=== PATIENT | female | born 1965 ===

== ENCOUNTER 2018-01-05 15:28 | Inpatient (IN) ==
[2018-01-05] MEDS ORDERED: SODIUM CHLORIDE 0.9% 1,000 ML IV STA ×2 (16:06→17:14)
[2018-01-05] MEDS ORDERED: DEXTROSE 50% 25 GM/50 ML SYRINGE IV ONE (17:13)
[2018-01-05 17:25] LABS: Basophils % 0.2 % (0.0-0.8); Eosinophils # 0.1 10*3/uL (0.0-0.87); Hematocrit 30.5 VOL% (35.7-47.0); Hemoglobin 9.9 GM/DL (12.0-16.0); Immature Granulocytes % 0.9 %; Immature Granulocytes Absolute 0.11 #; Lymphocytes % 8.1 % (21.3-54.2); Mean Corpuscular HGB Conc 32.5 GM/DL (32-36); Mean Corpuscular Hemoglobin 32 PG (27-34); Mean Corpuscular Volume 99.7 FL (87-102); Monocytes # 0.5 10*3/uL (0.11-0.8); Monocytes % 4.2 % (1.7-12.7); Neutrophils # 10.8 10*3/uL (1.4-7.4); Neutrophils % 85.6 % (38.7-73.9); Platelet Count 198 T/CUMM (130-400); Red Blood Count 3.06 MC/CUMM (3.8-5.5); Red Cell Distribution Width 13.6 % (9.3-17.3); White Blood Count 12.7 T/CUMM (4-12)
[2018-01-05 17:39] LABS: Ammonia 22 UMOL/L (11-32)
[2018-01-05 17:45] LABS: Apearance,Urine Slightly Hazy (Clear); Bilirubin,Urine Negative (Negative); Blood, Urine Negative (Negative); Glucose,Urine (UA) 50 mg/dL (Negative); Hyaline Casts,Urine 3 /LPF (0-3); Ketones,Urine Negative (Negative); Mucus,Urine Occasional /LPF (Occasional); Nitrite,Urine Negative (Negative); Protein,Urine Negative; RBC,Urine 3 /HPF (0-4); Renal Epithelial Cells,Urine Occasional /HPF (<1); Squamous Epithelial Cell,Urine Occasional /HPF (0-10); Urine Color Yellow (Yellow); Urine Specific Gravity 1.015 (1.001-1.035); Urine Urobilinogen < 2.0 EU/DL (0.2-1.0); WBC,Urine 2 /HPF (0-6)
[2018-01-05 17:45] LABS: Alanine Aminotransferase 16 U/L (13-56); Albumin 2.1 G/DL (3.4-5.0); Alkaline Phosphatase 123 U/L (45-117); Aspartate Amino Transferase 23 U/L (0-37); Blood Urea Nitrogen 38 MG/DL (7-18); Glucose 89 MG/DL (74-106); Osmolality,Calculated 288.3 MOS/KG (273-304); Potassium 3.7 MMOL/L (3.5-5.1); Sodium 141 MMOL/L (136-145); Total Protein 6.8 G/DL (6.4-8.3); Troponin I Only < 0.015 NG/ML (0.00-0.045)
[2018-01-05 17:47] LABS: Barbiturates Screen,Urine Negative (Negative); Benzodiazepines Screen,Urine Negative (Negative); Cannabinoid Screen,Urine Negative (Negative); Opiate Screen,Urine Positive (Negative); Phencyclidine Screen,Urine Negative (Negative)
[2018-01-05 17:51] LABS: INR 1.1; PT Patient Result 11.2 SECS; Partial Thromboplastin Time 29.9 SECS (0-40)
[2018-01-05 19:03] LABS: Anisocytosis 1+; Macrocytosis 1+; Platelet Estimate Normal
[2018-01-05] MEDS ORDERED: GLUCAGON 1 MG VIAL IM PRN (19:10)
[2018-01-05] MEDS ORDERED: DEXTROSE 50% 25 GM/50 ML VIAL IV PRN (19:10)
[2018-01-05 20:40] LABS: ABG Base Excess -1.6 MMOL/L (-2.5-2.5); ABG HCO3 23.1 MMOL/L (20-26); ABG Oxygen Saturation 99.1 % (95-100); ABG PH 7.369 (7.35-7.45)
[2018-01-05 21:56] LABS: Magnesium 2.4 MG/DL (1.8-2.4)
[2018-01-05] MEDS: DEXTROSE 5% NACL 0.9% 1,000 ML IV SCH (23:43)
[2018-01-06] MEDS: INSULIN LISPRO 100 UNIT/ML SUBCUT SCH ×4 (01:29→18:05)
[2018-01-06 05:50] LABS: Basophils % 0.3 % (0.0-0.8); Eosinophils # 0.1 10*3/uL (0.0-0.87); Eosinophils % 1.1 % (0.00-10.9); Hemoglobin 9.7 GM/DL (12.0-16.0); Immature Granulocytes % 0.5 %; Immature Granulocytes Absolute 0.05 #; Lymphocytes % 9.1 % (21.3-54.2); Mean Corpuscular HGB Conc 33.4 GM/DL (32-36); Mean Corpuscular Hemoglobin 33 PG (27-34); Mean Platelet Volume 10.2 FL (9.6-12.0); Monocytes # 0.4 10*3/uL (0.11-0.8); Monocytes % 3.6 % (1.7-12.7); Neutrophils % 85.4 % (38.7-73.9); Platelet Count 202 T/CUMM (130-400); Red Blood Count 2.96 MC/CUMM (3.8-5.5); Red Cell Distribution Width 13.6 % (9.3-17.3); White Blood Count 10.6 T/CUMM (4-12)
[2018-01-06 06:19] LABS: Eosinophils 1 % (0-10); Giant Platelets Few; Hypochromasia 1+; Lymphocytes 8 % (20-55); Microcytosis Slight; Ovalocytes Slight; Platelet Estimate Adequate; Segmented Neutrophils 86 % (50-85); Total Cells Counted 100
[2018-01-06 06:22] LABS: Albumin 1.8 G/DL (3.4-5.0); Bilirubin,Total 0.7 MG/DL (0.2-1.0); Osmolality,Calculated 298.6 MOS/KG (273-304); Potassium 3.4 MMOL/L (3.5-5.1); Total Protein 5.6 G/DL (6.4-8.3)
[2018-01-06] MEDS: DEXTROSE 5% NACL 0.9% 1,000 ML IV SCH ×3 (07:52→17:58)
[2018-01-06] MEDS ORDERED: THIAMINE 200 MG/2 ML VIAL IV SCH (09:00)
[2018-01-06] MEDS: FOLIC ACID 1 MG TABLET PO SCH (09:54)
[2018-01-06 21:44] LABS: Apearance,Urine Slightly Hazy (Clear); Bacteria,Urine Many /HPF (Few); Bilirubin,Urine Negative (Negative); Blood, Urine Small mg/dL (Negative); Glucose,Urine (UA) Negative (Negative); Ketones,Urine Negative (Negative); Mucus,Urine Occasional /LPF (Occasional); Nitrite,Urine Negative (Negative); Protein,Urine 30 MG/DL; RBC,Urine 4 /HPF (0-4); Squamous Epithelial Cell,Urine Occasional /HPF (0-10); Urine Color Yellow (Yellow); Urine Specific Gravity 1.012 (1.001-1.035); Urine Urobilinogen < 2.0 EU/DL (0.2-1.0); WBC,Urine 36 /HPF (0-6)
[2018-01-07] MEDS: INSULIN LISPRO 100 UNIT/ML SUBCUT SCH ×2 (00:33→07:05)
[2018-01-07] MEDS: DEXTROSE 5% NACL 0.9% 1,000 ML IV SCH ×3 (00:55→17:01)
[2018-01-07] MEDS: ACETAMINOPHEN 325 MG TABLET PO PRN ×2 (03:16→23:19)
[2018-01-07 06:33] LABS: Magnesium 1.9 MG/DL (1.8-2.4); Prealbumin 4.9 MG/DL (20-40)
[2018-01-07] MEDS: THIAMINE 100 MG TABLET PO SCH (09:49)
[2018-01-07] MEDS: ASPIRIN EC 81 MG TABLET PO SCH (09:50)
[2018-01-07] MEDS: FOLIC ACID 1 MG TABLET PO SCH (09:50)
[2018-01-07] MEDS: HYDROcod/ACETAMIN 7.5-325 MG/15 ML UDCUP PO PRN ×2 (14:15→23:19)
[2018-01-08 04:59] LABS: Basophils % 0.2 % (0.0-0.8); Eosinophils # 0.2 10*3/uL (0.0-0.87); Eosinophils % 1.9 % (0.00-10.9); Hematocrit 25.9 VOL% (35.7-47.0); Hemoglobin 8.5 GM/DL (12.0-16.0); Immature Granulocytes % 0.7 %; Immature Granulocytes Absolute 0.07 #; Lymphocytes % 9.3 % (21.3-54.2); Mean Corpuscular HGB Conc 32.8 GM/DL (32-36); Mean Corpuscular Hemoglobin 33 PG (27-34); Mean Corpuscular Volume 101.2 FL (87-102); Mean Platelet Volume 10.7 FL (9.6-12.0); Monocytes # 0.4 10*3/uL (0.11-0.8); Monocytes % 3.3 % (1.7-12.7); Neutrophils % 84.6 % (38.7-73.9); Platelet Count 187 T/CUMM (130-400); Red Blood Count 2.56 MC/CUMM (3.8-5.5); Red Cell Distribution Width 13.8 % (9.3-17.3); White Blood Count 10.7 T/CUMM (4-12)
[2018-01-08 05:31] LABS: Calcium 6.7 MG/DL (8.5-10.1); Potassium 3.5 MMOL/L (3.5-5.1)
[2018-01-08] MEDS: LEVOTHYROXINE 50 MCG TABLET PEG SCH (06:03)
[2018-01-08 06:21] LABS: Hypochromasia 2+; Microcytosis 2+; Platelet Estimate Adequate
[2018-01-08] MEDS: DEXTROSE 5% NACL 0.9% 1,000 ML IV SCH (07:21)
[2018-01-08] MEDS: ASPIRIN EC 81 MG TABLET PO SCH (09:58)
[2018-01-08] MEDS: FOLIC ACID 1 MG TABLET PO SCH (09:58)
[2018-01-08] MEDS: HYDROcod/ACETAMIN 7.5-325 MG/15 ML UDCUP PO PRN ×2 (09:58→17:33)
[2018-01-08] MEDS: THIAMINE 100 MG TABLET PO SCH (09:58)
[2018-01-09] MEDS: HYDROcod/ACETAMIN 7.5-325 MG/15 ML UDCUP PO PRN ×3 (05:32→17:05)
[2018-01-09] MEDS: LEVOTHYROXINE 50 MCG TABLET PEG SCH (05:33)
[2018-01-09] MEDS: FOLIC ACID 1 MG TABLET PO SCH (09:18)
[2018-01-09] MEDS: THIAMINE 100 MG TABLET PO SCH (09:18)
[2018-01-09] MEDS: ASPIRIN EC 81 MG TABLET PO SCH (09:18)
[2018-01-10] MEDS: LEVOTHYROXINE 50 MCG TABLET PEG SCH (06:30)
[2018-01-10 07:44] LABS: Calcium 7.6 MG/DL (8.5-10.1); Osmolality,Calculated 291.7 MOS/KG (273-304); Potassium 4.7 MMOL/L (3.5-5.1); Prealbumin 8.7 MG/DL (20-40)
[2018-01-10] MEDS: THIAMINE 100 MG TABLET PO SCH (09:12)
[2018-01-10] MEDS: FOLIC ACID 1 MG TABLET PO SCH (09:13)
[2018-01-10] MEDS: ASPIRIN EC 81 MG TABLET PO SCH (09:23)
[2018-01-10 11:51] VITALS: BP 122/64
[2018-01-10] MEDS ORDERED: LEVOTHYROXINE 75 MCG TABLET PO SCH (13:00)
== END 2018-01-10 14:42 | disposition left against medical advice (07) | DRG 420 ==
LOC: EDUNIT# → EDBD → N.ED 15:28 → N.EDINP 15:28 → N.2E 20:32
PROVIDERS: ADMIT Hospitalist; ATTEND Hospitalist

== ENCOUNTER 2018-02-03 15:19 | Inpatient (IN) ==
[2018-02-03] MEDS ORDERED: NALOXONE 0.4 MG/ML VIAL IV STA (16:00)
[2018-02-03] MEDS ORDERED: SODIUM CHLORIDE 0.9% 500 ML IV STA (16:00)
[2018-02-03] MEDS ORDERED: NALOXONE 0.4 MG/ML VIAL ONE (16:32)
[2018-02-03 17:05] LABS: Apearance,Urine CLEAR (Clear); Bacteria,Urine Moderate /HPF (Few); Bilirubin,Urine Negative (Negative); Blood, Urine Negative (Negative); Glucose,Urine (UA) Negative (Negative); Hyaline Casts,Urine 3 /LPF (0-3); Ketones,Urine Negative (Negative); Mucus,Urine Occasional /LPF (Occasional); Nitrite,Urine Negative (Negative); Protein,Urine 100 MG/DL; RBC,Urine <1 /HPF (0-4); Urine Color Yellow (Yellow); Urine Specific Gravity 1.014 (1.001-1.035); Urine Urobilinogen < 2.0 EU/DL (0.2-1.0); WBC,Urine 2 /HPF (0-6)
[2018-02-03 17:10] LABS: Barbiturates Screen,Urine Negative (Negative); Benzodiazepines Screen,Urine Negative (Negative); Cannabinoid Screen,Urine Negative (Negative); Opiate Screen,Urine Positive (Negative); Phencyclidine Screen,Urine Negative (Negative)
[2018-02-03 17:39] LABS: Basophils % 0.3 % (0.0-0.8); Eosinophils # 0.1 10*3/uL (0.0-0.87); Eosinophils % 0.6 % (0.00-10.9); Hematocrit 25.2 VOL% (35.7-47.0); Hemoglobin 8.3 GM/DL (12.0-16.0); Immature Granulocytes % 0.5 %; Immature Granulocytes Absolute 0.07 #; Lymphocytes # 0.5 10*3/uL (1.4-4.0); Mean Corpuscular HGB Conc 32.9 GM/DL (32-36); Mean Corpuscular Hemoglobin 33 PG (27-34); Mean Corpuscular Volume 99.2 FL (87-102); Mean Platelet Volume 9.5 FL (9.6-12.0); Monocytes # 0.3 10*3/uL (0.11-0.8); Monocytes % 2.6 % (1.7-12.7); Neutrophils # 11.9 10*3/uL (1.4-7.4); Platelet Count 255 T/CUMM (130-400); Red Blood Count 2.54 MC/CUMM (3.8-5.5); Red Cell Distribution Width 13.8 % (9.3-17.3); White Blood Count 12.9 T/CUMM (4-12)
[2018-02-03 18:00] LABS: Alanine Aminotransferase 13 U/L (13-56); Albumin 1.9 G/DL (3.4-5.0); Alkaline Phosphatase 123 U/L (45-117); Aspartate Amino Transferase 22 U/L (0-37); Bilirubin,Total < 0.39 MG/DL (0.2-1.0); Blood Urea Nitrogen 13 MG/DL (7-18); Calcium 7.2 MG/DL (8.5-10.1); Glucose 90 MG/DL (74-106); Osmolality,Calculated 269.1 MOS/KG (273-304); Potassium 3.3 MMOL/L (3.5-5.1); Sodium 135 MMOL/L (136-145); Total Protein 6.9 G/DL (6.4-8.3)
[2018-02-03 18:06] LABS: Ammonia 30 UMOL/L (11-32)
[2018-02-03 18:48] LABS: Hypochromasia 1+
[2018-02-03] MEDS ORDERED: ONDANSETRON 4 MG/2 ML VIAL IV PRN (18:57)
[2018-02-03] MEDS ORDERED: DOCUSATE SODIUM 100 MG CAPSULE PO PRN (18:57)
[2018-02-03] MEDS ORDERED: ACETAMINOPHEN 325 MG TABLET PO PRN (18:57)
[2018-02-03] MEDS ORDERED: LACTULOSE 20 GM/30 ML UDCUP PO PRN (18:57)
[2018-02-03] MEDS ORDERED: DEXTROSE 50% 25 GM/50 ML VIAL IV PRN (19:01)
[2018-02-03] MEDS: INSULIN LISPRO 100 UNIT/ML SUBCUT SCH (23:17)
[2018-02-03] MEDS: LEVOFLOXACIN INJ 750 MG in PREMIX 1 EACH IV SCH (23:20)
[2018-02-03] MEDS: SODIUM CHLORIDE 0.9% 1,000 ML IV SCH (23:20)
[2018-02-04 06:48] LABS: Basophils % 0.3 % (0.0-0.8); Eosinophils # 0.1 10*3/uL (0.0-0.87); Eosinophils % 0.8 % (0.00-10.9); Hematocrit 23.2 VOL% (35.7-47.0); Hemoglobin 8.1 GM/DL (12.0-16.0); Immature Granulocytes % 0.6 %; Immature Granulocytes Absolute 0.06 #; Lymphocytes # 0.5 10*3/uL (1.4-4.0); Lymphocytes % 5.6 % (21.3-54.2); Mean Corpuscular HGB Conc 34.9 GM/DL (32-36); Mean Corpuscular Hemoglobin 33 PG (27-34); Mean Corpuscular Volume 95.1 FL (87-102); Mean Platelet Volume 9.3 FL (9.6-12.0); Monocytes # 0.3 10*3/uL (0.11-0.8); Monocytes % 3.3 % (1.7-12.7); Neutrophils # 8.6 10*3/uL (1.4-7.4); Neutrophils % 89.4 % (38.7-73.9); Platelet Count 229 T/CUMM (130-400); Red Blood Count 2.44 MC/CUMM (3.8-5.5); White Blood Count 9.6 T/CUMM (4-12)
[2018-02-04 07:08] LABS: Calcium 6.7 MG/DL (8.5-10.1); Osmolality,Calculated 267.1 MOS/KG (273-304); Risk Ratio 2.46; VLDL CHOLESTEROL 34.2 MG/DL
[2018-02-04] MEDS: LEVOTHYROXINE 125 MCG TABLET PO SCH (10:28)
[2018-02-04] MEDS: PANTOPRAZOLE 40 MG TABLET PO SCH (10:28)
[2018-02-04] MEDS: INSULIN LISPRO 100 UNIT/ML SUBCUT SCH ×4 (10:39→22:16)
[2018-02-04] MEDS: SODIUM CHLORIDE 0.9% 1,000 ML IV SCH ×2 (11:10→17:38)
[2018-02-04] MEDS: VANCOMYCIN INJ 500 MG in SODIUM CHLORIDE 0.9% 100 ML IV SCH (17:15)
[2018-02-04] MEDS: LEVOFLOXACIN INJ 750 MG in PREMIX 1 EACH IV SCH (21:28)
[2018-02-05] MEDS: SODIUM CHLORIDE 0.9% 1,000 ML IV SCH ×2 (00:55→10:55)
[2018-02-05] MEDS: VANCOMYCIN INJ 500 MG in SODIUM CHLORIDE 0.9% 100 ML IV SCH ×2 (03:29→16:01)
[2018-02-05 04:06] LABS: Basophils % 0.2 % (0.0-0.8); Eosinophils # 0.1 10*3/uL (0.0-0.87); Eosinophils % 0.9 % (0.00-10.9); Hematocrit 19.9 VOL% (35.7-47.0); Hemoglobin 6.9 GM/DL (12.0-16.0); Immature Granulocytes % 0.7 %; Immature Granulocytes Absolute 0.07 #; Lymphocytes # 0.6 10*3/uL (1.4-4.0); Lymphocytes % 5.5 % (21.3-54.2); Mean Corpuscular HGB Conc 34.7 GM/DL (32-36); Mean Corpuscular Hemoglobin 34 PG (27-34); Mean Corpuscular Volume 96.6 FL (87-102); Mean Platelet Volume 9.5 FL (9.6-12.0); Monocytes # 0.4 10*3/uL (0.11-0.8); Monocytes % 3.9 % (1.7-12.7); Neutrophils # 9.4 10*3/uL (1.4-7.4); Neutrophils % 88.8 % (38.7-73.9); Platelet Count 224 T/CUMM (130-400); Red Blood Count 2.06 MC/CUMM (3.8-5.5); Red Cell Distribution Width 14.1 % (9.3-17.3); White Blood Count 10.6 T/CUMM (4-12)
[2018-02-05 04:23] LABS: Calcium 6.9 MG/DL (8.5-10.1); Osmolality,Calculated 272.7 MOS/KG (273-304); Potassium 3.8 MMOL/L (3.5-5.1)
[2018-02-05] MEDS: LEVOTHYROXINE 125 MCG TABLET PO SCH (05:31)
[2018-02-05] MEDS: INSULIN LISPRO 100 UNIT/ML SUBCUT SCH ×4 (08:12→21:22)
[2018-02-05] MEDS: PANTOPRAZOLE 40 MG TABLET PO SCH (10:09)
[2018-02-05] MEDS ORDERED: SODIUM CHLORIDE 0.9% 1,000 ML IV PRN (10:42)
[2018-02-05] MEDS: ALBUTEROL/IPRATROPIUM 3 ML NEB RESP TX SCH ×2 (14:38→19:06)
[2018-02-05] MEDS: DORNASE ALFA 2.5 MG/2.5 ML VIAL RESP TX SCH (19:06)
[2018-02-05] MEDS: LEVOFLOXACIN INJ 750 MG in PREMIX 1 EACH IV SCH (21:21)
[2018-02-05 22:12] LABS: Hemoglobin 11.6 GM/DL (12.0-16.0)
[2018-02-06] MEDS: MORPHINE 2 MG/1 ML SYRINGE IV PRN ×4 (00:42→20:11)
[2018-02-06] MEDS: SODIUM CHLORIDE 0.9% 1,000 ML IV SCH ×3 (00:45→20:10)
[2018-02-06] MEDS: ALBUTEROL/IPRATROPIUM 3 ML NEB RESP TX SCH ×7 (00:47→23:25)
[2018-02-06] MEDS: VANCOMYCIN INJ 500 MG in SODIUM CHLORIDE 0.9% 100 ML IV SCH ×2 (03:45→15:43)
[2018-02-06 04:15] LABS: Basophils % 0.1 % (0.0-0.8); Eosinophils # 0.1 10*3/uL (0.0-0.87); Eosinophils % 0.5 % (0.00-10.9); Immature Granulocytes % 0.5 %; Immature Granulocytes Absolute 0.05 #; Lymphocytes # 0.7 10*3/uL (1.4-4.0); Lymphocytes % 6.5 % (21.3-54.2); Mean Corpuscular HGB Conc 33.3 GM/DL (32-36); Mean Corpuscular Hemoglobin 31 PG (27-34); Mean Platelet Volume 9.5 FL (9.6-12.0); Monocytes # 0.5 10*3/uL (0.11-0.8); Monocytes % 4.2 % (1.7-12.7); Neutrophils # 9.8 10*3/uL (1.4-7.4); Neutrophils % 88.2 % (38.7-73.9); Platelet Count 213 T/CUMM (130-400); Red Blood Count 3.55 MC/CUMM (3.8-5.5); Red Cell Distribution Width 15.7 % (9.3-17.3); White Blood Count 11.1 T/CUMM (4-12)
[2018-02-06 04:48] LABS: Calcium 7.1 MG/DL (8.5-10.1); Osmolality,Calculated 276.4 MOS/KG (273-304); Potassium 3.2 MMOL/L (3.5-5.1)
[2018-02-06] MEDS: LEVOTHYROXINE 125 MCG TABLET PO SCH (05:50)
[2018-02-06] MEDS: INSULIN LISPRO 100 UNIT/ML SUBCUT SCH ×4 (07:24→20:55)
[2018-02-06] MEDS: DORNASE ALFA 2.5 MG/2.5 ML VIAL RESP TX SCH ×2 (07:31→19:28)
[2018-02-06] MEDS: PANTOPRAZOLE 40 MG TABLET PO SCH (09:01)
[2018-02-06] MEDS: POTASSIUM CHLORIDE 20 MEQ/15 ML UDCUP PER TUBE PRN ×4 (09:01→15:44)
[2018-02-06] MEDS: LEVOFLOXACIN INJ 750 MG in PREMIX 1 EACH IV SCH (20:10)
[2018-02-07] MEDS: ALBUTEROL/IPRATROPIUM 3 ML NEB RESP TX SCH ×5 (03:27→19:19)
[2018-02-07] MEDS: VANCOMYCIN INJ 500 MG in SODIUM CHLORIDE 0.9% 100 ML IV SCH (05:04)
[2018-02-07] MEDS: SODIUM CHLORIDE 0.9% 1,000 ML IV SCH ×2 (05:06→22:25)
[2018-02-07] MEDS: LEVOTHYROXINE 125 MCG TABLET PO SCH (05:37)
[2018-02-07 05:51] LABS: Basophils % 0.3 % (0.0-0.8); Eosinophils # 0.1 10*3/uL (0.0-0.87); Eosinophils % 1.2 % (0.00-10.9); Hematocrit 34.1 VOL% (35.7-47.0); Hemoglobin 11.6 GM/DL (12.0-16.0); Immature Granulocytes % 0.5 %; Immature Granulocytes Absolute 0.05 #; Lymphocytes # 0.6 10*3/uL (1.4-4.0); Lymphocytes % 6.7 % (21.3-54.2); Mean Corpuscular Hemoglobin 31 PG (27-34); Mean Corpuscular Volume 91.4 FL (87-102); Mean Platelet Volume 9.8 FL (9.6-12.0); Monocytes # 0.5 10*3/uL (0.11-0.8); Monocytes % 4.7 % (1.7-12.7); Neutrophils # 8.3 10*3/uL (1.4-7.4); Neutrophils % 86.6 % (38.7-73.9); Platelet Count 225 T/CUMM (130-400); Red Blood Count 3.73 MC/CUMM (3.8-5.5); Red Cell Distribution Width 15.9 % (9.3-17.3); White Blood Count 9.6 T/CUMM (4-12)
[2018-02-07 06:19] LABS: Calcium 6.9 MG/DL (8.5-10.1); Osmolality,Calculated 273.5 MOS/KG (273-304); Potassium 4.4 MMOL/L (3.5-5.1)
[2018-02-07] MEDS: DORNASE ALFA 2.5 MG/2.5 ML VIAL RESP TX SCH ×2 (07:26→19:19)
[2018-02-07] MEDS: PANTOPRAZOLE 40 MG TABLET PO SCH (08:11)
[2018-02-07] MEDS: INSULIN LISPRO 100 UNIT/ML SUBCUT SCH ×4 (08:11→21:04)
[2018-02-07] MEDS ORDERED: LIDOCAINE 2% 20 ML VIAL RESP TX ONE (09:45)
[2018-02-07] MEDS ORDERED: LIDOCAINE 1% 20 ML VIAL MISC INJ ONE (09:51)
[2018-02-07] MEDS: MORPHINE 2 MG/1 ML SYRINGE IV PRN ×2 (10:48→20:50)
[2018-02-07] MEDS: GLUCAGON 1 MG VIAL IM PRN (10:56)
[2018-02-07] MEDS: VANCOMYCIN INJ 600 MG in SODIUM CHLORIDE 0.9% 250 ML IV SCH (17:15)
[2018-02-07] MEDS: LEVOFLOXACIN INJ 750 MG in PREMIX 1 EACH IV SCH (20:39)
[2018-02-07] MEDS: LACTOBACILLUS RHAMNOSUS GG CAPSULE PER TUBE SCH (20:39)
[2018-02-07] MEDS: ZINC OXIDE PASTE 113 GM TUBE TOP SCH (20:43)
[2018-02-08] MEDS: ALBUTEROL/IPRATROPIUM 3 ML NEB RESP TX SCH ×7 (00:24→23:13)
[2018-02-08] MEDS: MORPHINE 2 MG/1 ML SYRINGE IV PRN ×3 (03:20→19:58)
[2018-02-08] MEDS: VANCOMYCIN INJ 600 MG in SODIUM CHLORIDE 0.9% 250 ML IV SCH ×2 (05:22→17:21)
[2018-02-08] MEDS: LEVOTHYROXINE 125 MCG TABLET PO SCH (05:47)
[2018-02-08 06:30] LABS: Basophils % 0.4 % (0.0-0.8); Eosinophils # 0.2 10*3/uL (0.0-0.87); Eosinophils % 1.6 % (0.00-10.9); Hematocrit 30.9 VOL% (35.7-47.0); Hemoglobin 10.9 GM/DL (12.0-16.0); Immature Granulocytes % 0.4 %; Immature Granulocytes Absolute 0.04 #; Lymphocytes # 0.7 10*3/uL (1.4-4.0); Mean Corpuscular HGB Conc 35.3 GM/DL (32-36); Mean Corpuscular Hemoglobin 32 PG (27-34); Mean Corpuscular Volume 89.3 FL (87-102); Mean Platelet Volume 10.2 FL (9.6-12.0); Monocytes # 0.4 10*3/uL (0.11-0.8); Monocytes % 4.6 % (1.7-12.7); Platelet Count 186 T/CUMM (130-400); Red Blood Count 3.46 MC/CUMM (3.8-5.5); Red Cell Distribution Width 15.5 % (9.3-17.3); White Blood Count 9.3 T/CUMM (4-12)
[2018-02-08 07:07] LABS: Blood Urea Nitrogen 11 MG/DL (7-18); Glucose 72 MG/DL (74-106); Osmolality,Calculated 267.1 MOS/KG (273-304); Potassium 5.5 MMOL/L (3.5-5.1); Sodium 135 MMOL/L (136-145)
[2018-02-08] MEDS: GLUCAGON 1 MG VIAL IM PRN (07:09)
[2018-02-08 07:20] LABS: Calcium < 5.0 MG/DL (8.5-10.1)
[2018-02-08] MEDS: DORNASE ALFA 2.5 MG/2.5 ML VIAL RESP TX SCH ×2 (07:52→19:30)
[2018-02-08] MEDS: LACTOBACILLUS RHAMNOSUS GG CAPSULE PER TUBE SCH ×2 (08:48→21:52)
[2018-02-08] MEDS: PANTOPRAZOLE 40 MG TABLET PO SCH (08:48)
[2018-02-08] MEDS: INSULIN LISPRO 100 UNIT/ML SUBCUT SCH ×4 (08:48→21:52)
[2018-02-08] MEDS: MAGNESIUM OXIDE 400 MG TABLET PEG SCH (08:48)
[2018-02-08] MEDS ORDERED: MAGNESIUM SULF RIDER 2 GM in PREMIX 1 EACH IV ONE (08:52)
[2018-02-08] MEDS: ZINC OXIDE PASTE 113 GM TUBE TOP SCH ×2 (09:00→21:54)
[2018-02-08] MEDS: SODIUM CHLORIDE 0.9% 1,000 ML IV SCH ×3 (11:32→19:58)
[2018-02-08] MEDS: LEVOFLOXACIN INJ 750 MG in PREMIX 1 EACH IV SCH (19:58)
[2018-02-09] MEDS: SODIUM CHLORIDE 0.9% 1,000 ML IV SCH ×4 (02:42→16:30)
[2018-02-09] MEDS: MORPHINE 2 MG/1 ML SYRINGE IV PRN ×3 (02:42→21:11)
[2018-02-09] MEDS: ALBUTEROL/IPRATROPIUM 3 ML NEB RESP TX SCH ×5 (03:00→20:45)
[2018-02-09] MEDS: VANCOMYCIN INJ 600 MG in SODIUM CHLORIDE 0.9% 250 ML IV SCH ×2 (04:55→19:55)
[2018-02-09] MEDS: LEVOTHYROXINE 125 MCG TABLET PO SCH (06:15)
[2018-02-09] MEDS: DORNASE ALFA 2.5 MG/2.5 ML VIAL RESP TX SCH ×2 (07:32→20:45)
[2018-02-09] MEDS: INSULIN LISPRO 100 UNIT/ML SUBCUT SCH ×4 (08:26→21:30)
[2018-02-09 10:40] LABS: Calcium 6.6 MG/DL (8.5-10.1); Osmolality,Calculated 269.1 MOS/KG (273-304); Potassium 4.1 MMOL/L (3.5-5.1)
[2018-02-09] MEDS: CHOLECALCIFEROL 1,000 UNIT TABLET PO SCH (11:04)
[2018-02-09] MEDS: ZINC OXIDE PASTE 113 GM TUBE TOP SCH ×2 (11:05→21:31)
[2018-02-09] MEDS: LACTOBACILLUS RHAMNOSUS GG CAPSULE PER TUBE SCH ×2 (11:05→21:31)
[2018-02-09] MEDS: MAGNESIUM OXIDE 400 MG TABLET PEG SCH (11:05)
[2018-02-09] MEDS: PANTOPRAZOLE 40 MG TABLET PO SCH (11:05)
[2018-02-09] MEDS: LEVOFLOXACIN INJ 750 MG in PREMIX 1 EACH IV SCH (21:28)
[2018-02-10] MEDS: VANCOMYCIN INJ 600 MG in SODIUM CHLORIDE 0.9% 250 ML IV SCH ×2 (00:38→18:42)
[2018-02-10] MEDS: ALBUTEROL/IPRATROPIUM 3 ML NEB RESP TX SCH ×6 (01:10→19:12)
[2018-02-10] MEDS: MORPHINE 2 MG/1 ML SYRINGE IV PRN ×3 (03:41→21:23)
[2018-02-10] MEDS: SODIUM CHLORIDE 0.9% 1,000 ML IV SCH ×2 (03:43→12:45)
[2018-02-10 06:02] LABS: Calcium 6.7 MG/DL (8.5-10.1); Potassium 4.2 MMOL/L (3.5-5.1); Prealbumin 10.8 MG/DL (20-40)
[2018-02-10] MEDS: LEVOTHYROXINE 125 MCG TABLET PO SCH (06:25)
[2018-02-10] MEDS: DORNASE ALFA 2.5 MG/2.5 ML VIAL RESP TX SCH ×2 (07:54→19:12)
[2018-02-10] MEDS: INSULIN LISPRO 100 UNIT/ML SUBCUT SCH ×4 (08:53→21:39)
[2018-02-10] MEDS: ZINC OXIDE PASTE 113 GM TUBE TOP SCH ×2 (09:42→21:28)
[2018-02-10] MEDS: PANTOPRAZOLE 40 MG TABLET PO SCH (09:42)
[2018-02-10] MEDS: MAGNESIUM OXIDE 400 MG TABLET PEG SCH (09:42)
[2018-02-10] MEDS: LACTOBACILLUS RHAMNOSUS GG CAPSULE PER TUBE SCH ×2 (09:42→21:28)
[2018-02-10] MEDS: CHOLECALCIFEROL 1,000 UNIT TABLET PO SCH (09:42)
[2018-02-10 16:07] LABS: Lymphocytes,Pleural Fluid 11 %; Monocytes,Pleural Fluid 3 %; Neutrophils,Pleural Fluid 86 %; RBC,Pleural Fluid 181 T/CUMM
[2018-02-10] MEDS: LEVOFLOXACIN INJ 750 MG in PREMIX 1 EACH IV SCH (21:27)
[2018-02-11] MEDS: ALBUTEROL/IPRATROPIUM 3 ML NEB RESP TX SCH ×5 (00:41→14:00)
[2018-02-11] MEDS: MORPHINE 2 MG/1 ML SYRINGE IV PRN ×3 (02:07→11:43)
[2018-02-11] MEDS: LEVOTHYROXINE 125 MCG TABLET PO SCH (05:57)
[2018-02-11] MEDS: SODIUM CHLORIDE 0.9% 1,000 ML IV SCH ×2 (06:00)
[2018-02-11 06:26] LABS: Basophils % 0.5 % (0.0-0.8); Eosinophils # 0.1 10*3/uL (0.0-0.87); Eosinophils % 0.9 % (0.00-10.9); Hematocrit 33.9 VOL% (35.7-47.0); Hemoglobin 11.5 GM/DL (12.0-16.0); Immature Granulocytes % 0.7 %; Immature Granulocytes Absolute 0.05 #; Lymphocytes # 0.5 10*3/uL (1.4-4.0); Lymphocytes % 7.3 % (21.3-54.2); Mean Corpuscular HGB Conc 33.9 GM/DL (32-36); Mean Corpuscular Hemoglobin 32 PG (27-34); Mean Corpuscular Volume 94.2 FL (87-102); Mean Platelet Volume 9.6 FL (9.6-12.0); Monocytes # 0.4 10*3/uL (0.11-0.8); Monocytes % 5.3 % (1.7-12.7); Neutrophils # 6.3 10*3/uL (1.4-7.4); Neutrophils % 85.3 % (38.7-73.9); Platelet Count 158 T/CUMM (130-400); Red Cell Distribution Width 15.2 % (9.3-17.3); White Blood Count 7.4 T/CUMM (4-12)
[2018-02-11 06:54] LABS: Calcium 6.8 MG/DL (8.5-10.1); Osmolality,Calculated 270.1 MOS/KG (273-304); Potassium 4.3 MMOL/L (3.5-5.1)
[2018-02-11] MEDS: DORNASE ALFA 2.5 MG/2.5 ML VIAL RESP TX SCH (07:25)
[2018-02-11] MEDS: INSULIN LISPRO 100 UNIT/ML SUBCUT SCH ×2 (07:51→11:11)
[2018-02-11] MEDS: ZINC OXIDE PASTE 113 GM TUBE TOP SCH (09:44)
[2018-02-11] MEDS: PANTOPRAZOLE 40 MG TABLET PO SCH (09:44)
[2018-02-11] MEDS: CHOLECALCIFEROL 1,000 UNIT TABLET PO SCH (09:44)
[2018-02-11] MEDS: MAGNESIUM OXIDE 400 MG TABLET PEG SCH (09:44)
[2018-02-11] MEDS: LACTOBACILLUS RHAMNOSUS GG CAPSULE PER TUBE SCH (09:44)
[2018-02-11] MEDS ORDERED: CLINDAMYCIN 300 MG CAPSULE PEG SCH (14:00)
[2018-02-11] MEDS: VANCOMYCIN INJ 600 MG in SODIUM CHLORIDE 0.9% 250 ML IV SCH (14:49)
[2018-02-11 19:44] VITALS: BP 119/73
[2018-02-11] MEDS ORDERED: LEVOFLOXACIN 500 MG TABLET PO SCH (21:00)
== END 2018-02-11 18:25 | disposition hospice, home (50) | DRG 812 ==
LOC: EDUNIT# → EDBD → N.ED 15:19 → SUATTDRO 17:57 → N.EDINP 17:57 → N.3E 19:21
PROVIDERS: ADMIT Internal Medicine; ATTEND Internal Medicine
PROC: IRTHORA (2018-02-10 13:20)